=== PATIENT | female | born 1985 | race Caucasian/White ===

== ENCOUNTER 2017-08-19 17:25 | Emergency (ER) | payer SELFPAY ==
[~2017-08-19 17:25] MED LIST: ACYC1CAP16 PO; AMBI5TAB PO; DEXT15TA PO; IBUP600 PO; PERI8.6T PO; PREN0.01 PO
--- NOTE | 2017-08-19 18:39 | PD ---
HPI Chief Complaint Elevated BP in the office Travel History International Travel<30 Days: No Contact w/Intl Traveler<30Days: No Known Affected Area: No History of Present Illness HPI 32-year-old 001, IUP 36.6 care complicated by ADD, history of genital herpes but partner is unaware Patient presents from the office with elevated blood pressures. She denies any leaking of fluid or vaginal bleeding. She reports good movement. She denies any painful contractions. She does report that she has contractions every night. She reports that she had a lot of contractions on Thursday when she was at [employer]. She denies painful contractions at this time. She denies any headache, visual changes, epigastric or right upper quadrant pain. She has no other obstetrical complaints. Weeks Gestation: 36 Para: 1 : 2 History Past Medical History Narrative Medical ADD Obstetric History Obstetric History 001 1 History of genital herpes, spouse is unaware Past Surgical History Surgical History: No Previous Surgery Family History Narrative Family History CVA Social History Alcohol Use: No Tobacco Use: No Substance Abuse: No Allergies-Medications (Allergen,Severity, Reaction): Coded Allergies: No Known Allergies (Unverified , 06/01/15) Home Meds Active Scripts Sennosides-Docusate Sodium (Shari-Colace 8.6-50 mg) 1 Tab Tab, 2 TAB PO Q12H Y for CONSTIPATION, #30 TAB 0 Refills Prov:Cher Malone MD 06/02/15 Ibuprofen (Motrin 600 Mg Tab) 600 Mg Tab, 600 MG PO Q6H Y for CRAMPING, #30 TAB 0 Refills Prov:Cher Malone MD 06/02/15 Reported Medications Acyclovir (Zovirax 200 Mg Cap) 200 Mg Cap, 400 MG PO BID, CAP 06/01/15 Zolpidem Tartrate (Ambien) 5 Mg Tab, 5 MG PO HS, TAB 06/01/15 Adderall 15 mg (Adderall 15 mg) 15 Mg Tab, 10 MG PO DAILY, TAB 06/01/15 Multivit/Min/Fol Ac/Iron/Pren ( Vit ( Plus)) Tab, 1 TAB PO DAILY, TAB 06/01/15 Review of Systems Except as stated in HPI: all other systems reviewed are Neg Physical Exam Narrative GENERAL: Well-nourished, well-developed patient. SKIN: Warm and dry. HEAD: Normocephalic and atraumatic. EYES: No scleral icterus. No injection or drainage. ENT: No nasal drainage noted. Mucous membranes pink. Airway patent. NECK: Supple, trachea midline. No JVD. CARDIOVASCULAR: Regular rate and rhythm without murmurs, gallops, or rubs. RESPIRATORY: Breath sounds equal bilaterally. No accessory muscle use. BREASTS: Deferred ABDOMEN/GI: Abdomen soft, non-tender, bowel sounds present, no rebound, no guarding Gravid GENITOURINARY: Grossly normal external genitalia and BUS. No cervical or vaginal masses noted. Grossly normal rugae, physiologic discharge. SVE closed/ thick/high/posterior External Genitalia: intact and normal in appearance FHT's: Category: [-] Baseline: [-] Reactive: [-] Variability: [-] Decels: [-] EXTREMITIES: No cyanosis or edema. BACK: Nontender without obvious deformity. No CVA tenderness. NEUROLOGICAL: Awake and alert. Motor and sensory grossly within normal limits. Five out of 5 muscle strength in all muscle groups. Normal speech. DTR 2+, no clonus Psychiatric: Grossly normal memory and affect Musculoskeletal: Grossly normal range of motion, gait, muscle strength MDM Plan Assessment/plan: 1. IUP at 36.6 2. Elevated blood pressures: The patient presented with report of elevated blood pressures in the office. Her blood pressures here are normal. Laboratory evaluation was performed with no evidence of preeclampsia. Strict preeclampsia precautions given. An initial protein creatinine ration was elevated but repeated due to poor specimen and was 0.0. This results was confirmed and verified with the lab. Will notify Dr. Estrada. 3. well-being: Reassuring testing with reactive NST and category 1 heart rate tracing. kick counts daily 4. History of genital herpes: Partner is unaware and will keep this confidential 5. Per request of Dr. Child: requesting HIV, hemoglobin A1c, RPR, and hepatitis B, will draw 6. Follow-up with Dr. child in 2-3 days or sooner if needed 7. No evidence of labor, strict labor precautions. Diagnosis Diagnosis: Primary Impression: 36 weeks gestation of Additional Impression: Elevated blood pressure affecting in third trimester, antepartum Disposition: 01 DISCHARGE HOME Condition: Good Maria Ines Shaw MD Aug 19, 2017 18:39
[2017-08-19 19:10] LABS: HEMATOCRIT 31.8 % (35.0-46.0); HEMOGLOBIN 10.8 GM/DL (11.6-15.3); MEAN CORPUSCULAR HEMOGLOBIN 29.8 PG (27.0-34.0); MEAN CORPUSCULAR HGB CONC 33.8 % (32.0-36.0); MEAN PLATELET VOLUME 9.7 FL (7.0-11.0); PLATELET COUNT 205 TH/MM3 (150-450); RED BLOOD COUNT 3.62 MIL/MM3 (4.00-5.30); RED CELL DISTRIBUTION WIDTH 15.9 % (11.6-17.2); WHITE BLOOD COUNT 9.1 TH/MM3 (4.0-11.0)
[2017-08-19 19:13] LABS: AMORPHOUS SEDIMENT, URINE RARE; BACTERIA, URINE OCC /hpf; BILIRUBIN, URINE NEG (NEG); BLOOD, URINE NEG (NEG); GLUCOSE,URINE NEG (NEG); KETONE, URINE NEG (NEG); NITRITE,URINE NEG (NEG); PH, URINE 6.5 (5.0-8.5); SQUAMOUS EPITHELIAL CELL URINE 19 /hpf (0-5); URINE COLOR COLORLESS (YELLW/STRAW); URINE LEUKOCYTE ESTERASE LARGE (NEG)
[2017-08-19 19:26] LABS: ALBUMIN 2.7 GM/DL (3.4-5.0); AST (GOT) 13 U/L (15-37); BICARBONATE 23.3 MEQ/L (21.0-32.0); BLOOD UREA NITROGEN 7 MG/DL (7-18); CALCIUM 8.8 MG/DL (8.5-10.1); CHLORIDE 106 MEQ/L (98-107); CREATININE 0.44 MG/DL (0.50-1.00); GLOMERULAR FILTRATION RATE 164 ML/MIN (>89); GLUCOSE,RANDOM 77 MG/DL (74-106); SODIUM (NA) 140 MEQ/L (136-145)
[2017-08-19 19:27] LABS: ALT (GPT) 17 U/L (10-53)
[2017-08-19 19:29] LABS: ALKALINE PHOSPHATASE 81 U/L (45-117); TOTAL BILIRUBIN ADULT 0.2 MG/DL (0.2-1.0); TOTAL PROTEIN 6.5 GM/DL (6.4-8.2)
[2017-08-19 22:01] LABS: HEMOGLOBIN A1C 5.8 % (4.3-6.0)
[2017-08-20 10:54] LABS: RPR SCREEN FOR REFLEX NON-REACTIVE (NON-REACTVE)
== END 2017-08-19 21:00 | disposition home or self-care (01) ==
LOC: HOBED 17:25
DX: O26.893 Other specified pregnancy related conditions, third trimester (principal); R03.0 Elevated blood-pressure reading, without diagnosis of hypertension; R82.90 Unspecified abnormal findings in urine; Z3A.36 36 weeks gestation of pregnancy
CPT/HCPCS: 36415; 59025; 80053; 81001; 82570; 83036; 84156; 84550; 85027; 86592; 87086; 87340; 87389; G0475

== ENCOUNTER 2017-09-08 06:06 | Inpatient (IN) | payer BC ==
[2017-09-08] VITALS (29 sets, daily range): BP systolic 111–163; BP diastolic 63–126; PULSE 66–116; RESP 1–20; TEMP 98.2–99.6
[~2017-09-08] VITALS: Ht 160 cm; Wt 81.6 kg
[2017-09-08] MEDS ORDERED: OXYTOCIN 30 UNITS/NS 500ML PREMIX IV PRN (06:30)
[2017-09-08] MEDS ORDERED: CITRIC ACID-SODIUM CITRATE LIQ 30 ML UDC PO SCH (08:00)
[2017-09-08] MEDS ORDERED: MINERAL OIL 10 ML VIAL TOPICAL PRN (08:00)
[2017-09-08] MEDS ORDERED: LACTATED RINGER'S 1000 ML BOLUS IV PRN (08:00)
[2017-09-08] MEDS ORDERED: OXYTOCIN 30 UNITS 500ML PREMIX IV ONE (08:00)
[2017-09-08] MEDS ORDERED: NS 1000 ML IV PRN (08:00)
[2017-09-08] MEDS ORDERED: LIDOCAINE HCL 1% 50 ML VIAL INFIL PRN (08:00)
[2017-09-08] MEDS ORDERED: NS 500 ML BOLUS IV PRN (08:00)
[2017-09-08] MEDS ORDERED: LIDOCAINE HCL 1% 50 ML VIAL I-DERMAL PRN (08:00)
[2017-09-08] MEDS: LACTATED RINGER'S 1000 ML IV SCH ×2 (08:31→11:41)
[2017-09-08 08:44] LABS: AUTOMATED NEUTROPHIL # 6.6 TH/MM3 (1.8-7.7); BASOPHIL % 0.3 % (0.0-2.0); EOSINOPHIL % 0.5 % (0.0-4.0); HEMATOCRIT 34.8 % (35.0-46.0); HEMOGLOBIN 11.6 GM/DL (11.6-15.3); LYMPH % 19.6 % (9.0-44.0); LYMPHOCYTE # 1.8 TH/MM3 (1.0-4.8); MEAN CELL VOLUME 87.4 FL (80.0-100.0); MEAN CORPUSCULAR HEMOGLOBIN 29.2 PG (27.0-34.0); MEAN CORPUSCULAR HGB CONC 33.4 % (32.0-36.0); MEAN PLATELET VOLUME 11.1 FL (7.0-11.0); MONO % 6.4 % (0.0-8.0); MONOCYTE # 0.6 TH/MM3 (0-0.9); NEUT % 73.2 % (16.0-70.0); PLATELET COUNT 184 TH/MM3 (150-450); RED BLOOD COUNT 3.98 MIL/MM3 (4.00-5.30); RED CELL DISTRIBUTION WIDTH 16.3 % (11.6-17.2); WHITE BLOOD COUNT 9.1 TH/MM3 (4.0-11.0)
[2017-09-08] MEDS ORDERED: fentaNYL 2MCG-BUPIV 0.125% INJ 150 ML EPIDURAL ONE (10:05)
[2017-09-08] MEDS ORDERED: ePHEDrine/NS 25 MG/5 ML SYRINGE ONE (10:09)
[2017-09-08] MEDS ORDERED: LIDOCAINE HCL 1% PF 5 ML AMPULE ONE (11:16)
--- NOTE | 2017-09-08 11:40 | PD.OB.DELI ---
Gest age assessed date: Sep 08, 2017 Pt started active labor?: Yes Medical induction of labor?: Yes Medical induction start date: Sep 08, 2017 Artificial rupture of membrane: Yes Artificial ROM date: Sep 08, 2017 Artifical ROM time: 07:15 Anesthesia: Epidural Episiotomy: None Vaginal Delivery: Normal Presentation: Occiput anterior Nuchal Cord: None Delayed cord clamping (45 sec): Yes : Female Delivery date: Sep 08, 2017 Delivery time: 11:17 One Minute : 9 Five Minute : 9 Weight: 8/1 Placenta: Spontaneous delivery, Intact, 3 vessel cord Laceration: Vaginal laceration, 1 deg Repair: Vicryl interrupted Estimated blood loss: 300cc Additional Information Beautiful delivery of Gabrielle. Small first degree laceration of vagina and perineum Norman Pringle MD Sep 08, 2017 11:40
[2017-09-08] MEDS ORDERED: ePHEDrine/NS 25 MG/5 ML SYRINGE IV PUSH PRN (11:45)
[2017-09-08] MEDS ORDERED: ONDANSETRON ODT 4 MG TAB PO PRN (11:45)
[2017-09-08] MEDS ORDERED: BENZOCAINE 20% TOPICAL SPRAY 60 ML CAN TOPICAL PRN (11:45)
[2017-09-08] MEDS ORDERED: NO SYSTEM NARCOTICS PRN (11:45)
[2017-09-08] MEDS ORDERED: OXYTOCIN 30 UNITS-500ML PREMIX 500 ML IV SCH (11:45)
[2017-09-08] MEDS ORDERED: fentaNYL 2MCG-BUPIV 0.125% 150 ML EPIDURAL PRN (11:45)
[2017-09-08] MEDS ORDERED: DOCUSATE SODIUM 50 MG/SENNA 8.6 MG TAB PO PRN ×2 (11:45)
[2017-09-08] MEDS ORDERED: WITCH HAZEL 50%/GLYCERIN 12.5% 40 PAD JAR TOPICAL PRN (11:45)
[2017-09-08] MEDS ORDERED: SODIUM CHLORIDE 0.9% FLUSH 10 ML FLUSH IV FLUSH PRN (11:45)
[2017-09-08] MEDS ORDERED: ALUMINUM/MAGNESIUM/SIMETH 30 ML CUP PO PRN (11:45)
[2017-09-08] MEDS ORDERED: DO NOT ADMINISTER ANTICOAGULANTS PRN (11:45)
[2017-09-08] MEDS ORDERED: ACETAMINOPHEN 325 MG TAB PO PRN (11:45)
[2017-09-08] MEDS ORDERED: OXYTOCIN 30 UNITS-500ML PREMIX 500 ML IV ONE (11:45)
[2017-09-08] MEDS: IBUPROFEN 800 MG TAB PO PRN ×2 (12:32→20:41)
[2017-09-08 13:10] LABS: BILIRUBIN, URINE NEG (NEG); BLOOD, URINE MOD (NEG); GLUCOSE,URINE NEG (NEG); KETONE, URINE 20 mg/dL (NEG); NITRITE,URINE NEG (NEG); URINE COLOR Straw (YELLW/STRAW); URINE LEUKOCYTE ESTERASE NEG (NEG)
[2017-09-08] MEDS ORDERED: MEASLES, MUMPS, RUBELLA VACCINE 0.5 ML VIAL SQ ONE (16:00)
[2017-09-08] MEDS ORDERED: DIPHTH/TETANUS/ACEL PERTUSSIS (BOOSTER) 0.5 ML VIAL/PFS IM ONE (16:00)
[2017-09-08] MEDS ORDERED: SODIUM CHLORIDE 0.9% FLUSH 10 ML FLUSH IV FLUSH SCH (21:00)
[2017-09-08] MEDS ORDERED: ZOLPIDEM TARTRATE 5 MG TAB PO PRN (21:00)
[2017-09-09] MEDS: IBUPROFEN 800 MG TAB PO PRN (08:05)
[2017-09-09] MEDS ORDERED: MULTIVIT/MIN/PREN/FOL AC/IRON PRENATAL TAB PO SCH (09:00)
[2017-09-09] MEDS ORDERED: IBUP1TAB7 PO (14:05)
--- NOTE | 2017-09-09 14:05 | HHI.OB ---
Subjective Post Day: 1 Remarks pt wants to be dc today Objective Vitals/I&O Vital Signs Date Time Temp Pulse Resp B/P (MAP) Pulse Ox O2 Delivery O2 Flow Rate FiO2 09/08/17 22:29 99.6 94 20 120/77 (91) Objective Remarks GENERAL: Well-nourished, well-developed patient. CARDIOVASCULAR: Regular rate and rhythm mild murmur, gallops, or rubs. RESPIRATORY: Breath sounds equal bilaterally. No accessory muscle use. ABDOMEN/GI: Abdomen soft, non-tender. Fundus: Firm, non-tender at umbilicus. GENITOURINARY: Light to moderate bleeding. EXTREMITIES: No cyanosis or edema, non-tender, without signs of DVT. Medications and IVs Current Medications Medications (Trade) Dose Ordered Sig/Ivonne Route Start Time Stop Time Status Last Admin Fentanyl/ Bupivacaine/ Sodium Chlor 150 ml @ 0 mls/hr TITRATE PRN EPIDURAL 09/08/17 11:45 (NS Flush) 2 ml BID IV FLUSH 09/08/17 21:00 (NS Flush) 2 ml UNSCH PRN IV FLUSH 09/08/17 11:45 (Tylenol) 650 mg Q4H PRN PO 09/08/17 11:45 (Motrin) 800 mg Q8H PRN PO 09/08/17 11:45 09/09/17 08:05 (Americaine 20% Top Spr) 1 spray Q4H PRN TOPICAL 09/08/17 11:45 (Tucks Pads) 1 applic QID PRN TOPICAL 09/08/17 11:45 (Shari-Colace) 2 tab Q12H PRN PO 09/08/17 11:45 (Ambien) 5 mg HS PRN PO 09/08/17 21:00 (Mag-Al Plus Susp Liq) 15 ml Q8H PRN PO 09/08/17 11:45 (Zofran Odt) 4 mg Q6H PRN PO 09/08/17 11:45 (Stuartnatal Plus 3 ) 1 tab DAILY PO 09/09/17 09:00 Assessment/Plan Problem List: (1) Vaginal delivery ICD Codes: O80 - Encounter for full-term uncomplicated delivery Status: Acute Assessment and Plan pt doing well pain well managed with oral pain medication bonding and with infant routine care Discharge Planning dc home today if infant dc Sintia Valentine Sep 09, 2017 14:05
--- NOTE | 2017-09-09 14:06 | HHI.DCPOC ---
Discharge Care Plan Diagnosis: (1) Vaginal delivery Your Health Problems Are: Vaginal delivery Report Symptoms to Your Doctor -Temperature above 100.5 degrees -Redness, of incision or excessive or foul smelling drainage -Unusual pain or calf pain -Increased vaginal bleeding -Painful or difficulty urinating -Feelings of extreme sadness or anxiety after 2 weeks Goals to Promote Your Health * To prevent worsening of your condition and complications * To maintain your health at the optimal level Directions to Meet Your Goals Take your medications as prescribed Follow your dietary instruction Follow activity as directed Ensure plenty of rest for recovery Drink fluids for hydration Keep your appointments as scheduled Take your immunizations and boosters as scheduled If your symptoms worsen call your PCP, if no PCP go to Urgent Care Center or Emergency Room Smoking is Dangerous to Your Health. Avoid second hand smoke Call the 24-hour crisis hotline for domestic abuse at Sintia Valentine Sep 09, 2017 14:06
--- NOTE | 2017-09-09 14:09 | HHI.DS ---
Admission Date Sep 08, 2017 at 06:06 Discharge Date: Sep 09, 2017 Admitting Diagnosis term induction of labor Diagnosis: (1) Vaginal delivery ICD Codes: O80 - Encounter for full-term uncomplicated delivery Status: Acute Delivery Date: Sep 08, 2017 Vaginal Delivery: Normal Infant: Female Brief History term induction of labor Hospital Course induction of labor routine care Pt Condition on Discharge: Good Discharge Disposition: Discharge Home Discharge Instructions Diet Instructions: As Tolerated, No Restrictions Additional Diet Instructions: Drink at least 8 - 16 oz bottles of water a day Activities You Can Perform: Shower Only-No Bath, Sitz Bath Activities to Avoid: Lifting/Bending, Sexual Activity Additional Activity Instruc.: No driving until off pain medications Do not lift anything heavier than your baby in an infant carrier Follow up Referrals: [facility] - 2 Weeks @ [facility] [place] New Medications: Ibuprofen (Ibuprofen) 800 Mg Tab 800 MG PO Q8H PRN for CRAMPING, #30 TAB 1 Refill Discontinued Medications: Acyclovir (Zovirax 200 Mg Cap) 200 Mg Cap 400 MG PO BID, Sintia Clemens Sep 09, 2017 14:09
--- NOTE | 2017-09-09 16:28 | HHI.HP ---
HPI Chief Complaint 39+ weeks, induction of labor Travel History International Travel<30 Days: No Contact w/Intl Traveler<30Days: No Known Affected Area: No History of Present Illness HPI term induction of labor Weeks Gestation: 39 Para: 1 : 2 Last Menstrual Period: Feb 02, 2017 History Past Medical History Medical History: Denies Significant Hx Obstetric History Obstetric History GBS Negative Hypertension in Past Surgical History Narrative Surgical none Surgical History: No Previous Surgery Family History Narrative Family History Heart disease mother, father, uncle Hypertension mother, father, uncle Breast cancer aunt Social History Alcohol Use: No Tobacco Use: No Substance Abuse: No Allergies-Medications (Allergen,Severity, Reaction): Coded Allergies: No Known Allergies (Unverified Allergy, Unknown, 09/08/17) Home Meds Active Scripts Ibuprofen (Ibuprofen) 800 Mg Tab, 800 MG PO Q8H Y for CRAMPING, #30 TAB 1 Refill Prov:SantopadreSintia [employer] WORKER 09/09/17 Sennosides-Docusate Sodium (Shari-Colace 8.6-50 mg) 1 Tab Tab, 2 TAB PO Q12H Y for CONSTIPATION, #30 TAB 0 Refills Prov:Cher Malone MD 06/02/15 Reported Medications Zolpidem Tartrate (Ambien) 5 Mg Tab, 5 MG PO HS, TAB 06/01/15 Adderall 15 mg (Adderall 15 mg) 15 Mg Tab, 10 MG PO DAILY, TAB 06/01/15 Multivit/Min/Fol Ac/Iron/Pren ( Vit ( Plus)) 27 Mg Iron-1 Mg Tab , 1 TAB PO DAILY, TAB 06/01/15 Discontinued Reported Medications Acyclovir (Zovirax 200 Mg Cap) 200 Mg Cap, 400 MG PO BID, CAP 06/01/15 Discontinued Scripts Ibuprofen (Motrin 600 Mg Tab) 600 Mg Tab, 600 MG PO Q6H Y for CRAMPING, #30 TAB 0 Refills Prov:Cher Malone MD 06/02/15 Review of Systems Except as stated in HPI: all other systems reviewed are Neg Physical Exam Vital Signs Date Time Temp Pulse Resp B/P (MAP) Pulse Ox O2 Delivery O2 Flow Rate FiO2 09/08/17 22:29 99.6 94 20 120/77 (91) Narrative GENERAL: Well-nourished, well-developed patient. SKIN: Warm and dry. HEAD: Normocephalic and atraumatic. EYES: No scleral icterus. No injection or drainage. ENT: No nasal drainage noted. Mucous membranes pink. Airway patent. NECK: Supple, trachea midline. No JVD. CARDIOVASCULAR: Regular rate and rhythm without murmurs, gallops, or rubs. RESPIRATORY: Breath sounds equal bilaterally. No accessory muscle use.. ABDOMEN/GI: Abdomen soft, non-tender, bowel sounds present, no rebound, no guarding GENITOURINARY: External Genitalia: intact and normal in appearance EXTREMITIES: No cyanosis or edema. BACK: Nontender without obvious deformity. No CVA tenderness. NEUROLOGICAL: Awake and alert. Motor and sensory grossly within normal limits. Five out of 5 muscle strength in all muscle groups. Normal speech. seen by Dr Yary Nicholson VTE Risk Assessment Bharat VTE Risk Assessment: No/Low Risk (score <= 1) Deweyi Risk Assessment Model Point Value = 1 Point Value = 2 Point Value = 3 Point Value = 5 Age 41-60 Minor surgery BMI > 25 kg/m2 Swollen legs Varicose veins or History of unexplained or recurrent spontaneous Oral contraceptives or hormone replacement Sepsis (< 1 month) Serious lung disease, including pneumonia (< 1 month) Abnormal pulmonary function Acute myocardial infarction Congestive heart failure (< 1 month) History of inflammatory bowel disease Medical patient at bed rest Age 61-74 Arthroscopic surgery Major open surgery (> 45 min) Laparoscopic surgery (> 45 min) Malignancy Confined to bed (> 72 hours) Immobilizing plaster cast Central venous access Age >= 75 History of VTE Family history of VTE Factor V Leiden Prothrombin [id number] Lupus anticoagulant Anticardiolipin antibodies Elevated serum homocysteine Heparin-induced thrombocytopenia Other congenital or acquired thrombophilia Stroke (< 1 month) Elective arthroplasty Hip, pelvis, or leg fracture Acute spinal cord injury (< 1 month) Prophylaxis Regimen Total Risk Factor Score Risk Level Prophylaxis Regimen 0-1 Low Early ambulation 2 Moderate Order ONE of the following: *Sequential Compression Device (SCD) *Heparin 5000 units SQ BID 3-4 Higher Order ONE of the following medications: *Heparin 5000 units SQ TID *Enoxaparin/Lovenox 40 mg SQ daily (WT < 150 kg, CrCl > 30 mL/min) *Enoxaparin/Lovenox 30 mg SQ daily (WT < 150 kg, CrCl > 10-29 mL/min) *Enoxaparin/Lovenox 30 mg SQ BID (WT < 150 kg, CrCl > 30 mL/min) AND/OR *Sequential Compression Device (SCD) 5 or more Highest Order ONE of the following medications: *Heparin 5000 units SQ TID (Preferred with Epidurals) *Enoxaparin/Lovenox 40 mg SQ daily (WT < 150 kg, CrCl > 30 mL/min) *Enoxaparin/Lovenox 30 mg SQ daily (WT < 150 kg, CrCl > 10-29 mL/min) *Enoxaparin/Lovenox 30 mg SQ BID (WT < 150 kg, CrCl > 30 mL/min) AND *Sequential Compression Device (SCD) Data Data Orders Orders Attending Discharge Order (09/09/17 ) Group B Strep: Negative Assessment/Plan Problem List: (1) Vaginal delivery ICD Codes: O80 - Encounter for full-term uncomplicated delivery Status: Acute Assessment and Plan pt doing well pain well managed with oral pain medication bonding and with infant routine care Discharge Planning dc home today if dc Sintia Valentine Sep 09, 2017 16:28
== END 2017-09-09 15:54 | disposition home or self-care (01) | DRG 774 ==
LOC: H2EA 06:06 → H1EA 14:30
PROVIDERS: ADMIT Obstetrics & Gynecology; ATTEND Obstetrics & Gynecology
PROC: 10E0XZZ Delivery of Products of Conception, External Approach (ICD-10-PCS; principal; 2017-09-08)
PROC: 10907ZC Drainage of Amniotic Fluid, Therapeutic from Products of Conception, Via Natural or Artificial Opening (ICD-10-PCS; 2017-09-08)
PROC: 3E033VJ Introduction of Other Hormone into Peripheral Vein, Percutaneous Approach (ICD-10-PCS; 2017-09-08)
PROC: 00HU33Z Insertion of Infusion Device into Spinal Canal, Percutaneous Approach (ICD-10-PCS; 2017-09-08)
PROC: 3E0R3BZ Introduction of Anesthetic Agent into Spinal Canal, Percutaneous Approach (ICD-10-PCS; 2017-09-08)
PROC: 0HQ9XZZ Repair Perineum Skin, External Approach (ICD-10-PCS; 2017-09-08)
DX: O70.0 First degree perineal laceration during delivery (principal); O16.9 Unspecified maternal hypertension, unspecified trimester; Z37.0 Single live birth; Z3A.39 39 weeks gestation of pregnancy; Z82.49 Family history of ischemic heart disease and other diseases of the circulatory system; Z23 Encounter for immunization
CPT/HCPCS: 59025; 80307; 81001; 85025; 86900; 86901; 90715; G0481; J2590; J7120